=== PATIENT | female | born 1960 | race Caucasian/White ===

== ENCOUNTER 2021-03-17 06:14 | Day surgery (SDC) | payer OTHER ==
[2021-03-16 12:14] LABS: COVID AG,FIA SOURCE NASAL SWAB
[~2021-03-17] VITALS: Ht 162.6 cm; Wt 72.7 kg
[2021-03-17] MEDS ORDERED: ALBUTEROL SULFATE 2.5 MG/0.5 ML NEB SOLUTION NEB ONE (06:15)
[2021-03-17] MEDS ORDERED: LIDOCAINE 2% 30 ML JELLY TP ONE (06:15)
[2021-03-17] MEDS ORDERED: BENZOCAINE 20% 50 MCG/SPRAY 57 GM TP ONE (06:15)
[2021-03-17] MEDS ORDERED: SODIUM CHLORIDE 0.9% 1,000 ML IV ONE (06:30)
[2021-03-17] MEDS ORDERED: MIDAZOLAM HCL 5 MG/ML VIAL ONE (07:18)
[2021-03-17] MEDS ORDERED: FentaNYL CITRATE PF 100 MCG/2 ML VIAL ONE (07:18)
[2021-03-17] MEDS ORDERED: AMLO-257 PO (08:25)
[2021-03-17] MEDS ORDERED: METO50 PO (08:26)
[2021-03-17] MEDS ORDERED: METO25 PO (08:26)
[2021-03-17] MEDS ORDERED: RIVA20TA PO (08:27)
[2021-03-17] MEDS ORDERED: GEMF600T90 PO (08:28)
[2021-03-17] MEDS ORDERED: MONT-35 PO (08:28)
[2021-03-17] MEDS ORDERED: OMEP20 PO (08:29)
[2021-03-17] MEDS ORDERED: MethylPREDNISolone SOD SUCC 125 MG/2 ML VIAL IVP ONE (09:00)
[2021-03-17] MEDS ORDERED: MethylPREDNISolone SOD SUCC 125 MG/2 ML VIAL ONE (09:20)
[2021-03-17] MEDS ORDERED: OXYGEN THERAPY IH SCH (20:00)
== END 2021-03-17 10:50 | disposition home or self-care (01) ==
LOC: SURGERY 06:14
PROVIDERS: ATTEND Internal Medicine Critical Care Medicine
DX: R06.2 Wheezing (principal); R05.3 Chronic cough; R49.0 Dysphonia; J84.9 Interstitial pulmonary disease, unspecified; J34.89 Other specified disorders of nose and nasal sinuses; J38.4 Edema of larynx; B37.0 Candidal stomatitis; Z20.822 Contact with and (suspected) exposure to COVID-19
CPT/HCPCS: 31623; 31624; 71045; 87015; 87070; 87101; 87206; 87220; 87426; 88184; 88185; C9803; J2250; J2930; J3010; 88112; 88312; J7613